=== PATIENT | male | born 1950 | race Caucasian/White ===

== ENCOUNTER 2017-01-22 07:11 | Inpatient (IN) | payer OTHER ==
--- NOTE | 2017-01-09 14:28 | HP ---
DATE OF SURGERY: 01/22/2017 DATE OF DICTATION: 12/31/2016 REASON FOR ADMISSION: Chronically incarcerated ventral hernia, acute incarcerated ventral hernia. 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 Patient had some mild nausea at that time, but no vomiting. Since that time, the patient states he has had mid abdominal pain that is exacerbated with bending or lifting type activities. He also has pain with Valsalvas. He has had no change in bowel habits. The nausea has resolved. No fever, chills, or sweats. PAST MEDICAL HISTORY: Significant for mild obesity, hypertension, and BPH. PAST SURGICAL HISTORY: None. MEDICATIONS: Prostate vitamins. ALLERGIES: None. SOCIAL HISTORY: Patient does not smoke. He drinks socially. PHYSICAL EXAMINATION: Lungs: Clear. Heart: Regular rhythm. Abdomen: Mildly obese, soft, nontender, nondistended. 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 He has a midline ventral hernia that is chronically incarcerated. The skin overlying the hernia is mildly thinned. The hernia is nontender. IMPRESSION/PLAN: Chronically incarcerated ventral hernia, acutely incarcerated ventral hernia, abdominal pain. This is a gentleman who was helping a physical scientist lift a 100-pound mixing bowl, and in doing so, felt sharp pain and a popping sensation in the mid abdomen. This was then followed by noticing a lump in the area. Patient clearly has a chronically and acutely incarcerated hernia, and since he has pain, I would recommend a repair. We have discussed the pros and cons of various approaches, and will plan to approach this gentleman with an open repair of ventral hernia with mesh. He may need a component separation depending on how big the defect is at the time of surgery and how much frayed tissue there is that needs to be bypassed. The indications, alternatives, and complications were discussed. Questions have been answered. We will plan to obtain written consent the day of surgery. NIRANJAN CARRILLO M.D. [id number] cc: Dr. Glen Ross, [address] [place] [address], phone number is
[2017-01-15 12:47] VITALS: BMI 29.0
[~2017-01-22 07:11] MED LIST: LACTATED RINGERS SOLUTION 1,000 ML IV SCH; ONDANSETRON 4 MG/2 ML VIAL IVPUSH PRN; PROMETHAZINE HCL 25 MG/1 ML VIAL IVPUSH PRN
[2017-01-22] MEDS ORDERED: TAMSULOSIN HCL 0.4 MG CAP.ER.24H (FP) ONE (07:56)
[2017-01-22] MEDS ORDERED: PROPOFOL 20 ML ONE ×5 (08:53→08:55)
[2017-01-22] MEDS ORDERED: SUCCINYLCHOLINE CHLORIDE 200 MG/10 ML VIAL ONE (08:54)
[2017-01-22] MEDS ORDERED: ROCURONIUM BROMIDE 50 MG/5 ML VIAL ONE (08:54)
[2017-01-22] MEDS ORDERED: DEXAMETHASONE SOD PHOSPHATE 4 MG/1 ML VIAL ONE (08:56)
[2017-01-22] MEDS ORDERED: ONDANSETRON 4 MG/2 ML VIAL ONE (08:56)
[2017-01-22] MEDS ORDERED: ceFAZolin SODIUM 1 GM VIAL ONE (08:57)
[2017-01-22] MEDS ORDERED: DEXAMETHASONE SOD PHOSPHATE/PF 10 MG/ML SDV ONE (09:03)
[2017-01-22] MEDS ORDERED: BUPIVACAINE HCL/PF 2.5 MG/ML - 30 ML VIAL IJ ONE (09:03)
[2017-01-22] MEDS ORDERED: MIDAZOLAM HCL 2 MG/2 ML SINGLE DOSE VIAL ONE (09:03)
[2017-01-22] MEDS ORDERED: ACETAMINOPHEN INJECTION 100 ML IVPB ONE (09:34)
[2017-01-22] MEDS ORDERED: KETOROLAC TROMETHAMINE 30 MG/1 ML VIAL ONE (10:06)
[2017-01-22] MEDS ORDERED: ePHEDrine SULFATE 50 MG/1 ML AMPULE ONE (10:14)
[2017-01-22] MEDS ORDERED: NEOSTIGMINE METHYLSULFATE 0.5 MG/ML - 10 ML MDV ONE (10:17)
[2017-01-22] MEDS ORDERED: GLYCOPYRROLATE 0.2 MG/1 ML VIAL ONE ×2 (10:17)
[2017-01-22] MEDS ORDERED: HYDROmorphone HCL/PF 1 MG/ML VIAL (FOR PYXIS CHARGING ONLY) ONE (11:21)
[2017-01-22] MEDS ORDERED: SODIUM CHLORIDE 0.9% P/F 10 ML VIAL IJ ONE (11:22)
[2017-01-22] MEDS ORDERED: oxyCODONE HCL 5 MG TABLET PO PRN (12:27)
[2017-01-22] MEDS ORDERED: IBUPROFEN 800 MG/8 ML IJ IVPB PRN (12:27)
[2017-01-22] MEDS ORDERED: morphine CARPU-JECT 10 MG/1 ML DISP.SYRIN IVPB PRN (12:27)
[2017-01-22] MEDS ORDERED: ACETAMINOPHEN 325 MG TABLET (FP) PO PRN (12:27)
[2017-01-22] MEDS ORDERED: D5-1/2NS+20 MEQ KCL - 1,000 ML IV SCH (12:30)
--- NOTE | 2017-01-22 12:59 | OP ---
DATE OF OPERATION: 01/22/2017 PREOPERATIVE DIAGNOSIS: Complex chronically incarcerated ventral hernia. POSTOPERATIVE DIAGNOSIS: Complex chronically incarcerated ventral hernia. PROCEDURE: Open bilateral component separation, transversus abdominis release, repair of complex ventral hernia with mesh. SURGEON: Fidel Carrillo MD AIRCRAFT CLEANER: Andres Merchant MD ANESTHESIA: Jessica Christianson MD (general) ESTIMATED BLOOD LOSS: Minimal. SPECIMEN: None. MEDICAL COMORBIDITIES: Obesity, hypertension, BPH, and coronary artery disease. 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 During that maneuver, he then felt a popping sensation and pain in the mid abdomen. He then noted a lump that progressively enlarged over the next several months. He now has pain in the area and wants this repaired. Patient identified and appropriately positioned on the operating room table. After placement of general anesthesia, the abdomen prepped and draped in the usual sterile fashion with ChloraPrep. A midline incision was made, deepened through subcutaneous tissue. The hernia and incarcerated contents of fat beneath the skin were then off from the dermis with blunt dissection. This was then dissected free circumferentially until the sac and hernia were completely removed from the dermis. At this point, the skin was retracted laterally and attention now focused on the anterior abdominal wall. The fascial plane was identified and the hernia clearly identified protruding through the fascia. At this point, the fascia was then scored circumferentially around the actual defect into the frayed material. This brought us into the rectus muscle on either side. The muscle on the patient's right was then split. The retrorectus space identified and developed bluntly and the component separation was performed of dividing the posterior rectus sheath off the rectus muscle out laterally toward the transversus abdominis interfaced with the obliques and the edge of the rectus. This dissection was carried approximately 4 inches above and below the actual defect as well (the defect as defined is the frayed fascia). Given the generosity of this defect, greater than 6 cm, I thought it best to then divide the transversus abdominis from the obliques as well as the edge of the rectus. This allowed placement of a much larger piece of mesh. This was done as well on the patient's right side. This was taken again above by the actual defect by 4 inches and below by 4 inches. Next, as we came around across the midline the midline insertion was then divided sharply and the retrorectus space continued on to the patient's left side and the muscle again split. The retrorectus space identified and developed and the fascial separation of the posterior rectus sheath then ensued the length of the incision and also approximately 4 cm above and below. The myofascial separation from the posterior rectus sheath was done on both sides. Again, on the patient's left side it appeared that because of the frayed tissue plane and the defect being greater than 6 cm I thought it best to extend a larger patch and therefore a transversus abdominis release was performed as well. The myofascial insertion was then sharply divided the length of the incision and approximately 4 to 5 inches above and below the actual defect. Once the myofascial separation was performed of the transversus abdominis, allowing this to be freed and mobilized, the actual defect was then measured and a large 10 x 20 and a large Phasix ProGrip was used for the operative repair, 15 x 30. The 2 pieces of mesh were then sewn together with the ProGrip side up with interrupted 3-0 Vicryl sutures, the mesh then placed into the retrorectus space and then with the ProGrip on the subrectus side and the on the posterior rectus sheath side/peritoneum side. The mesh was then fanned out laterally beyond the myofascial separation plane of the transversus release on both sides. Superiorly it was taken a good 4 inches above the actual frayed defect and inferiorly it was done in a similar fashion. Next, the mesh was then anchored with interrupted ReliaTack sutures. The operative field examined and noted to be hemostatic. The mesh irrigated. The operative field examined once again, hemostatic. The anterior sheath was then closed overlying the mesh with interrupted No. 1 PDS suture. The subcutaneous space irrigated and due to the flaps that were created a 10 flat J-P was placed and brought out through the patient's right lower quadrant appendectomy scar. The J-P was sewn with a 2-0 silk suture. The dermis reapproximated with interrupted inverted 3-0 Vicryl sutures and the skin closed all with rosalia followed by Dermabond. At the conclusion of this case, sponge and needle counts were correct. ATTESTATION: Brief operative note handwritten on the preprinted form. A [facility] will be cleared prior to giving any narcotics. FIDEL CARRILLO M.D. [id number] cc: Ken Ross MD; [address] [place] [address], #; [place] [address]
[2017-01-22] MEDS: oxyCODONE HCL 5 MG TABLET PO PRN ×2 (13:30→21:44)
[2017-01-22] MEDS ORDERED: TERAZOSIN HCL 10 MG PO SCH (22:00)
[2017-01-22] MEDS ORDERED: ATENOLOL 50 MG TABLET (FP) PO SCH (22:00)
[2017-01-22] MEDS ORDERED: TERAZOSIN HCL 5 MG CAPSULE PO SCH (22:00)
[2017-01-23 06:26] VITALS: BP 152/82; PULSE 85; TEMP 98
[2017-01-23] MEDS: oxyCODONE HCL 5 MG TABLET PO PRN (07:39)
--- NOTE | 2017-01-23 09:30 | DS ---
DATE OF ADMISSION: 01/22/2017 DATE OF DISCHARGE: 01/23/2017 ADMITTING DIAGNOSIS: Complex incarcerated ventral hernia. DISCHARGE DIAGNOSIS: Complex incarcerated ventral hernia. BRIEF HISTORY: This is a 66-year-old male who presented to [facility] for surgical management of a complex ventral hernia. This was repaired utilizing a mesh as well as component separation and myofascial release. Please reference Dr. Fidel Glover operative report. He was admitted for a full admission after the procedure. Overnight, he has tolerated diet well. He is ambulating, and he is comfortable on oral narcotics. The patient is being discharged. He has a new prescription of Percocet he will take as needed for pain. He will follow with Dr. Bravo in approximately 1 week to be evaluated for drain removal. He will empty his drain daily and record the output. He will sponge bathe. He will not lift anything more than 20 pounds. He is okay to walk, okay to climb stairs. He will likely require 2-4 weeks off from work. DO FELECIA MARTINEZ/[id number]
[2017-01-23] MEDS ORDERED: ENOXAPARIN NA (PORCINE) 40 MG/0.4 ML DISP.SYRIN SQ SCH (10:00)
[2017-01-23] MEDS ORDERED: PANTOPRAZOLE SODIUM 100 ML IVPB SCH (10:00)
[2017-01-23] MEDS ORDERED: ASPIRIN COATED 81 MG TABLET.EC PO SCH (10:00)
[2017-01-23] MEDS ORDERED: PANTOPRAZOLE SODIUM 40 MG in SODIUM CHLORIDE 100 ML IVPB SCH (10:00)
[2017-01-23] MEDS ORDERED: PATIENT'S OWN MEDICATION (NON-FORMULARY) (Ramipril [Ramipril] 10 MG) PO SCH (10:00)
[2017-01-23] MEDS ORDERED: RAMIPRIL 5 MG CAPSULE (FP) PO SCH (10:00)
== END 2017-01-23 09:23 | disposition home or self-care (01) | DRG 227 ==
LOC: FASU 07:11 → FM/S 12:27
PROVIDERS: ADMIT Surgery; ATTEND Surgery
PROC: 0JN80ZZ Release Abdomen Subcutaneous Tissue and Fascia, Open Approach (ICD-10-PCS; 2017-01-22)
PROC: 0W9G00Z Drainage of Peritoneal Cavity with Drainage Device, Open Approach (ICD-10-PCS; 2017-01-22)
PROC: 0WUF0JZ Supplement Abdominal Wall with Synthetic Substitute, Open Approach (ICD-10-PCS; principal; 2017-01-22 10:10)
DX: K43.9 Ventral hernia without obstruction or gangrene (principal); I25.10 Atherosclerotic heart disease of native coronary artery without angina pectoris; N40.0 Benign prostatic hyperplasia without lower urinary tract symptoms; I10 Essential (primary) hypertension; E66.9 Obesity, unspecified; Z68.29 Body mass index [BMI] 29.0-29.9, adult
CPT/HCPCS: 94010; 94760